=== PATIENT | male | born 1990 | race Caucasian/White ===

== ENCOUNTER 2018-07-22 17:32 | Emergency (ER) | payer SELFPAY ==
[~2018-07-22] VITALS: Ht 190.5 cm; Wt 145.1 kg
[2018-07-22 17:42] VITALS: BP 170/95
[2018-07-22] MEDS ORDERED: AZITHROMYCIN 250 MG TABLET. PO ONE (17:45)
[2018-07-22] MEDS ORDERED: metroNIDAZOLE 500 MG TABLET PO ONE (17:45)
[2018-07-22] MEDS ORDERED: cefTRIAXone IM 250 MG VIAL IM ONE (17:45)
[2018-07-22 17:51] LABS: BILIRUBIN,URINE NEGATIVE (NEG); COLOR,URINE YELLOW; NITRITE,URINE NEGATIVE (NEG); PH,URINE 5.5; PROTEIN,URINE NEGATIVE (NEG-TRACE)
--- NOTE | 2018-07-22 17:53 | PHYS DOC ---
Past Medical History Past Medical History: Anxiety, CAD, Hypertension Additional Past Surgical Histo: heart cath Alcohol Use: None Drug Use: None Adult General Chief Complaint Chief Complaint: SEXUALLY TRANSMITTED DISEASE HPI HPI Patient is a 28 year old male with history of hypertension, CAD, who presents today requesting to be treated for STDs. Patient states the significant other was diagnosed with Trichomonas. Patient denies any symptoms. Review of Systems Review of Systems Constitutional: Denies fever or chills [] Eyes: Denies change in visual acuity, redness, or eye pain [] HENT: Denies nasal congestion or sore throat [] Respiratory: Denies cough or shortness of breath [] Cardiovascular: No additional information not addressed in HPI [] GI: Denies abdominal pain, nausea, vomiting, bloody stools or diarrhea [] : Requests STD treatment. Denies dysuria or hematuria [] Musculoskeletal: Denies back pain or joint pain [] Integument: Denies rash or skin lesions [] Neurologic: Denies headache, focal weakness or sensory changes [] All other systems were reviewed and found to be within normal limits, except as documented in this note. Current Medications Current Medications Current Medications Medications (Trade) Dose Ordered Sig/Milana Start Time Stop Time Status Last Admin Dose Admin Azithromycin (Zithromax) 1,000 mg 1X ONCE 07/22/18 17:45 07/22/18 17:46 UNV Ceftriaxone Sodium (Rocephin Im) 250 mg 1X ONCE 07/22/18 17:45 07/22/18 17:46 UNV Metronidazole (Flagyl) 2,000 mg 1X ONCE 07/22/18 17:45 07/22/18 17:46 UNV Physical Exam Physical Exam Constitutional: Well developed, well nourished, no acute distress, non-toxic appearance. [] HENT: Normocephalic, atraumatic, bilateral external ears normal, oropharynx moist, no oral exudates, nose normal. [] Eyes: PERRLA, EOMI, conjunctiva normal, no discharge. [] Neck: Normal range of motion, no tenderness, supple, no stridor. [] Cardiovascular:Heart rate regular rhythm, no murmur [] Lungs & Thorax: Bilateral breath sounds clear to auscultation [] Abdomen: Bowel sounds normal, soft, no tenderness, no masses, no pulsatile masses. [] Skin: Warm, dry, no erythema, no rash. [] Back: No tenderness, no CVA tenderness. [] Extremities: No tenderness, no cyanosis, no clubbing, ROM intact, no edema. [] Neurologic: Alert and oriented X 3, normal motor function, normal sensory function, no focal deficits noted. [] Psychologic: Affect normal, judgement normal, mood normal. [] Current Patient Data Vital Signs Vital Signs Date Time Temp Pulse Resp B/P (MAP) Pulse Ox O2 Delivery O2 Flow Rate FiO2 07/22/18 17:42 97.7 81 20 170/95 (120) 99 Room Air 97.7 EKG EKG [] Radiology/Procedures Radiology/Procedures [] Course & Med Decision Making Course & Med Decision Making Pertinent Labs and Imaging studies reviewed. (See chart for details) This is a 28-year-old male patient presenting to the ED today for STD treatment. Patient will be given Flagyl, Rocephin and azithromycin. Blood pressure was in the 170s over 90s. Patient has history of hypertension, has prescription for metoprolol but does not take her medications. Encouraged to make sure he gets the prescription filled and start taking the medications. Follow-up with his own PCP. STD education provided. Dragon Disclaimer DragMemorop Disclaimer This electronic medical record was generated, in whole or in part, using a voice recognition dictation system. Departure Departure Impression: Primary Impression: Concern about STD in male without diagnosis Additional Impression: Hypertension Disposition: 01 HOME, SELF-CARE Condition: STABLE Patient Instructions: Hypertension, Sexually Transmitted Disease Additional Instructions: You were treated for sexually transmitted diseases in the emergency room. You cannot have sex for 2 weeks. Please use protection at all times. Please contact all your sex partners that have seek treatment too. Ensure you are take your blood pressure medicines and follow-up with the primary care doctor Problem Qualifiers Additional Impression: Hypertension Hypertension type: unspecified Qualified Codes: I10 - Essential (primary) hypertension KATIE MILLER APRN Jul 22, 2018 17:53
[2018-07-22 17:55] LABS: CLARITY,URINE CLEAR
[2018-07-22 17:56] LABS: BACTERIA,URINE 0 /HPF (0-FEW); RBC,URINE 0 /HPF (0-2); SQUAMOUS EPITHELIAL CELL,UR OCC /LPF; WBC,URINE OCC /HPF (0-4)
== END 2018-07-22 18:22 | disposition home or self-care (01) ==
LOC: ER 17:32
DX: I11.9 Hypertensive heart disease without heart failure (principal); Z20.2 Contact with and (suspected) exposure to infections with a predominantly sexual mode of transmission; F41.9 Anxiety disorder, unspecified
CPT/HCPCS: 81001; 87491; 87591; 96372; 99283; J0696; Q0144